=== PATIENT | female | born 1965 | race African-American/Black ===

== ENCOUNTER 2017-07-26 09:10 | Emergency (ER) | payer SELFPAY ==
[~2017-07-26] VITALS: Ht 165.1 cm; Wt 65.0 kg
[~2017-07-26 09:10] MED LIST: CARD120T4 PO; HYDR-3534 PO; HYDR12.57 PO
[2017-07-26 09:18] VITALS: BP 130/65; PULSE 78; RESP 16; TEMP 98; O2SAT 98
[2017-07-26 10:07] LABS: BLOOD, URINE SMALL (NEG); GLUCOSE,URINE NEG (NEG); KETONE, URINE NEG (NEG); NITRITE,URINE POS (NEG)
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
[2017-07-26 10:16] LABS: METHOD OF COLLECTION CLEAN CATCH; RBC, URINE 0-3 /hpf (0-3); URINE COLOR STRAW (YELLW/STRAW)
[2017-07-26 10:17] LABS: BACTERIA, URINE MANY /hpf
[2017-07-26] MEDS ORDERED: BACT800T5 PO (10:35)
[2017-07-26] MEDS ORDERED: ROBA500T PO (10:35)
[2017-07-26] MEDS ORDERED: KETOROLAC TROMETHAMINE 60 MG/2 ML (IM) VIAL IM ONE (10:45)
[2017-07-26] MEDS ORDERED: MACR100C2 PO (11:05)
--- NOTE | 2017-07-26 11:05 | PD ---
Data Data Last Documented VS Vital Signs Date Time Temp Pulse Resp B/P (MAP) Pulse Ox O2 Delivery O2 Flow Rate FiO2 07/26/17 09:18 98.0 78 16 130/65 (86) 98 Orders Orders Ua Includes Microscopic (07/26/17 09:56) Ed Discharge Order (07/26/17 10:36) Ketorolac Inj (Toradol Inj) (07/26/17 10:45) Labs Laboratory Tests Test 07/26/17 09:50 Urine Collection Type CLEAN CATCH Urine Color STRAW Urine Turbidity SLIGHTY CLOUDY Urine pH 6.0 Urine Specific [place] 1.012 Urine Protein NEG mg/dL Urine Glucose (UA) NEG mg/dL Urine Ketones NEG mg/dL Urine Occult Blood SMALL Urine Nitrite POS Urine Bilirubin NEG Urine Leukocyte Esterase LARGE Urine RBC 0-3 /hpf Urine WBC 25-49 /hpf Urine Bacteria MANY /hpf MDM Supervised Visit with RENU: Yes Diagnosis Primary Impression: UTI (urinary tract infection) Qualified Codes: N30.01 - Acute cystitis with hematuria Additional Impression: Back pain Qualified Codes: M54.40 - Lumbago with sciatica, unspecified side; G89.29 - Other chronic pain Referrals: Primary Care Physician Patient Instructions: General Instructions, Urinary Tract Infection in Women ( ED), Back Pain (ED) Departure Forms: Tests/Procedures Additional Instruction: Take medications as prescribed. Take [id number] Motrin 600 800 mg every 6-8 hours as needed for pain. Rest and stay well hydrated. Follow-up with her primary doctor. Return to emergency department if he developed new or worsening symptoms. Scripts Nitrofurantoin Monohydrate Macrocrystals (Macrobid) 100 Mg Cap 100 MG PO BID for Infection for 7 Days, #14 CAP 0 Refills Prov: Massiel Ramirez 07/26/17 Methocarbamol (Robaxin) 500 Mg Tab 500 MG PO TID for Muscle Spasm, #15 TAB 0 Refills Prov: Massiel Ramirez 07/26/17 Disposition: 01 DISCHARGE HOME Condition: Stable Massiel Ramirez Jul 26, 2017 11:05
== END 2017-07-26 11:12 | disposition home or self-care (01) ==
LOC: PHEFT 09:10
DX: N30.01 Acute cystitis with hematuria (principal); M54.40 Lumbago with sciatica, unspecified side; G89.29 Other chronic pain; V89.2XXS Person injured in unspecified motor-vehicle accident, traffic, sequela
CPT/HCPCS: 81001; 96372; 99284; J1885

== ENCOUNTER 2017-10-03 16:42 | Emergency (ER) | payer BC ==
[~2017-10-03] VITALS: Ht 165.1 cm; Wt 69.5 kg
[~2017-10-03 16:42] MED LIST changes: -HYDR-3534 PO; +MACR100C2 PO; +ROBA500T PO
[2017-10-03 16:46] VITALS: BP 140/74; PULSE 81; RESP 16; TEMP 98.2; O2SAT 99
[2017-10-03 17:02] LABS: BILIRUBIN, URINE NEG (NEG); BLOOD, URINE NEG (NEG); GLUCOSE,URINE NEG (NEG); KETONE, URINE NEG (NEG); NITRITE,URINE NEG (NEG); PH, URINE 6.5 (5.0-8.5); URINE LEUKOCYTE ESTERASE NEG (NEG)
[2017-10-03 17:13] LABS: SQUAMOUS EPITHELIAL CELL URINE 0-5 /hpf (0-5); URINE COLOR YELLOW (YELLW/STRAW)
[2017-10-03] MEDS ORDERED: DILT120T PO (18:44)
[2017-10-03] MEDS ORDERED: ASPI81CH7 CHEW (18:44)
[2017-10-03] MEDS ORDERED: DEXAMETHASONE SOD PHOS 20 MG/5 ML VIAL IM ONE (19:15)
--- NOTE | 2017-10-03 19:16 | PD ---
HPI Chief Complaint: Musculoskeletal Complaint Time Seen by Provider: 19:08 Travel History International Travel<30 days: No Contact w/Intl Traveler<30days: No Traveled to known affect area: No History of Present Illness HPI Patient comes emergency department complaining of left hip pain as burning-like in nature radiating down the back of her leg ongoing since May. Patient denies any injury, fevers, loss change in bowel or bladder, numbness or tingling anywhere, or weakness. Pain is worse with certain movement. Patient reports she has been taking Aleve and Tylenol helps some. Patient reports when this initially happened she was evaluated and told it was secondary to UTI. PFSH Past Medical History Hx Anticoagulant Therapy: No Cardiovascular Problems: Yes (HTN) Diabetes: No Diminished Hearing: No Hypertension: Yes Psychiatric: No Tetanus Vaccination: Unknown ?: Not : 2 Para: 2 Miscarriage: 0 : 0 Past Surgical History Genitourinary Surgery: Yes (laproscopic uterine surgery) Gynecologic Surgery: Yes (PARTIAL CERVIX REMOVED IN OCTOBER 2006) Other Surgery: Yes Social History Alcohol Use: Yes (SOCIALLY) Tobacco Use: No Substance Use: No Allergies-Medications (Allergen,Severity, Reaction): Coded Allergies: metronidazole (Unverified Allergy, Severe, Nausea/Vomiting, 10/03/17) Reported Meds & Prescriptions Reported Meds & Active Scripts Active Medrol Dosepak (Methylprednisolone) 4 Mg Dspk 4 Mg PO DIRECTED Per Pharmacist direction Reported Aspirin Children's (Aspirin) 81 Mg Chew 81 Mg CHEW DAILY Diltiazem (Diltiazem HCl) 120 Mg Tab 120 Mg PO DAILY Hydrochlorothiazide 12.5 Mg Cap 12.5 Mg PO BID Review of Systems Except as stated in HPI: all other systems reviewed are Neg Physical Exam Narrative GENERAL: Well-developed, well nourished, in no acute distress, and non-ill appearing. SKIN: Focused skin assessment warm and dry. HEAD: Atraumatic. Normocephalic. EYES: Pupils equal and round. EOMI. No scleral icterus. No injection or drainage. ENT: No nasal bleeding or discharge. Mucous membranes pink and moist. NECK: Trachea midline. Supple. No nuclear rigidity. RESPIRATORY: No accessory muscle use. No respiratory distress. GASTROINTESTINAL: Abdomen soft, non-tender, nondistended, and no guarding. Hepatic and splenic margins not palpable. No pulsatile mass. MUSCULOSKELETAL: No obvious deformities. No clubbing. No cyanosis. No edema. Full range of motion. No tenderness or crepitus or midline lumbar spine. Pelvic stable. Hip: FROM and equal BL with passive flexion, extension, Abduction, Adduction, and internal/external rotation. Pulses equal BL distal to injury. Capillary refill less than 2 seconds distal to injury and equal BL. FROM distal to injury and equal BL. Strength distal to injury equal BL. NV intact distal to injury and equal BL. Plantar flexion and dorsal flexion equal BL. Dorsal pulses equal BL. Sensation equal BL 1st web space. Straight leg test negative bilaterally. NEUROLOGICAL: Awake and alert. No obvious cranial nerve deficits. Motor grossly within normal limits. Normal speech. PSYCHIATRIC: Appropriate mood and affect; insight and judgment normal. Data Data Last Documented VS Vital Signs Date Time Temp Pulse Resp B/P (MAP) Pulse Ox O2 Delivery O2 Flow Rate FiO2 10/03/17 16:46 98.2 81 16 140/74 (96) 99 Orders Orders Urinalysis - C+S If Indicated (10/03/17 16:49) Dexamethasone Inj (Decadron Inj) (10/03/17 19:15) Hip, Uni(Ap&Lat) W Ap Pelvis (10/03/17 ) Ed Discharge Order (10/03/17 20:36) Labs Laboratory Tests Test 10/03/17 16:50 Urine Collection Type CLEAN CATCH Urine Color YELLOW Urine Turbidity CLEAR Urine pH 6.5 Urine Specific [place] 1.015 Urine Protein NEG mg/dL Urine Glucose (UA) NEG mg/dL Urine Ketones NEG mg/dL Urine Occult Blood NEG Urine Nitrite NEG Urine Bilirubin NEG Urine Leukocyte Esterase NEG Urine Squamous Epithelial Cells 0-5 /hpf Microscopic Urinalysis Comment CULT NOT INDICATED MDM Medical Decision Making Medical Screen Exam Complete: Yes Emergency Medical Condition: Yes Interpretation(s) Last Impressions Hip and Pelvis X-Ray 10/03/17 0000 Signed Impressions: Service Date/Time: Tuesday, October 03, 2017 19:27 - CONCLUSION: Unremarkable exam for patient's age. Martin Zamora MD Differential Diagnosis UTI, sciatica, strain, fracture, avascular necrosis Narrative Course The patient presented complaining of hip pain with radiation down leg. There was no history of recent fall or trauma. There was no evidence to support genitourinary etiology. There is also no evidence to suggest vascular pathology such as AAA dissection. No fevers or other evidence to suspect infectious processes, abscess, osteomyelitis etc. The patients neurological exam is normal with normal motor and sensory. There is no saddle paresthesias reported and no bowel or bladder incontinence or retention. I suspect the pain is mechanical in nature with sciatica. Clinical suspicion, plan of care and management was discussed with the patient. The patient was instructed to follow up with their health care provider. The patient was also instructed to return if the pain worsened, changed, or developed weakness or bowel or bladder trouble. The patient agreed with plan. Patient in no obvious distress upon re-evaluation. All pertinent laboratory/ Radiology result(s) discussed with patient. Patient was asked if they wanted to speak to my attending, which the patient did not wish to do at this time. Any questions/concerns in reference to patient diagnosis/condition discussed and clarified prior to patient's discharge. Reinforced sheer importance of close follow up with patient's primary physician or primary care clinic and orthopedic. Instructed patient to return to ED immediately, if symptoms return/ worsen. Patient showed understanding of above instructions. Further instructions and recommendations were detailed in discharge paperwork. Patient ambulated without difficulty out of ED at discharge. Diagnosis Primary Impression: Sciatica of left side Referrals: Deandre Toledo MD [facility] Patient Instructions: General Instructions, Sciatica (ED) Additional Instructions: Follow-up with your primary care physician and orthopedic in 3-5 days for reevaluation. Take all medication as prescribed. Do not take Aleve or ibuprofen while taking medication prescribed today. Return to the emergency department if symptoms get worse. Med/Other Pt SpecificInfo: Prescription(s) given Scripts Methylprednisolone Dosepak (Medrol Dosepak) 4 Mg Dspk 4 MG PO DIRECTED, #1 DSPK 0 Refills Per Pharmacist direction Prov: Abelino Ledesma MD 10/03/17 Disposition: 01 DISCHARGE HOME Condition: Stable Soy Garcia Oct 03, 2017 19:16
--- NOTE | 2017-10-03 19:44 | RADRPT ---
EXAM DATE/TIME: 10/03/2017 19:27 [place] COMPARISON: No previous studies available for comparison. INDICATIONS : Left hip pain for 3 months with no known injury MEDICAL HISTORY : None. SURGICAL HISTORY : None. ENCOUNTER: Initial ACUITY: 3 months PAIN SCORE: 10/10 LOCATION: Left entire hip FINDINGS: Examination of the left hip was performed with AP Pelvis. The primary and secondary trabecular patte rn of the femoral neck is intact. The hip joint is of normal width without significant sclerosis or bony hypertrophy. The acetabulum is grossly intact. CONCLUSION: Unremarkable exam for patient's age. Martin Zamora MD on October 03, 2017 at 19:41 Board Certified Radiologist. This report was verified electronically.
[2017-10-03] MEDS ORDERED: MEDR4PAK PO (20:34)
== END 2017-10-03 20:50 | disposition home or self-care (01) ==
LOC: PHED 16:42 → PHEFT 20:50
DX: M54.32 Sciatica, left side (principal); I10 Essential (primary) hypertension; Z88.8 Allergy status to other drugs, medicaments and biological substances; Z79.82 Long term (current) use of aspirin; Z79.899 Other long term (current) drug therapy
CPT/HCPCS: 73502; 81001; 96372; 99284; J1100

== ENCOUNTER 2017-11-20 16:30 | Emergency (ER) | payer BC ==
[~2017-11-20] VITALS: Ht 165.1 cm; Wt 69.9 kg
[~2017-11-20 16:30] MED LIST changes: +ASPI81CH7 CHEW; -CARD120T4 PO; +DILT120T PO; -MACR100C2 PO; +MEDR4PAK PO; -ROBA500T PO
[2017-11-20 16:58] VITALS: BP 130/67; PULSE 79; RESP 16; TEMP 98.5; O2SAT 100
[2017-11-20 17:05] LABS: BILIRUBIN, URINE NEG (NEG); BLOOD, URINE NEG (NEG); GLUCOSE,URINE NEG (NEG); KETONE, URINE NEG (NEG); NITRITE,URINE NEG (NEG); PH, URINE 5.5 (5.0-8.5); URINE COLOR YELLOW (YELLW/STRAW); URINE LEUKOCYTE ESTERASE NEG (NEG)
--- NOTE | 2017-11-20 17:40 | PD ---
HPI Chief Complaint: Complaint Time Seen by Provider: 17:09 Travel History International Travel<30 days: No Contact w/Intl Traveler<30days: No Traveled to known affect area: No History of Present Illness HPI 52-year-old female that presents to the ED for evaluation of possible UTI. Per patient she's had this for 2 days. Per patient she's had urgency and sensation is something down there. Pressure. Back pain on the left side. Per patient history of sciatica and had shots for her sciatica improvement of symptoms but she wasn't sure of this is related to that or UTI. She denies any fevers chills or sweats. No vaginal discharge or bleeding. Has not seen anybody for this. No cough or runny nose. No injuries or falls. Allergies to Bactrim and metronidazole. PFSH Past Medical History Hx Anticoagulant Therapy: No Cardiovascular Problems: Yes (HTN) Diabetes: No Diminished Hearing: No Hypertension: Yes Psychiatric: No Tetanus Vaccination: > 5 Years Influenza Vaccination: Yes ?: Not LMP: menapause Menopausal: Yes : 2 Para: 2 Miscarriage: 0 : 0 Past Surgical History Genitourinary Surgery: Yes (Laproscopic uterine surgery) Gynecologic Surgery: Yes (Partial cervix removal ) Other Surgery: Yes Social History Alcohol Use: Yes (Occ./social) Tobacco Use: No Substance Use: No Allergies-Medications (Allergen,Severity, Reaction): Coded Allergies: metronidazole (Unverified Allergy, Severe, Nausea/Vomiting, 11/20/17) sulfamethoxazole (Verified Allergy, Intermediate, nausea, 11/20/17) trimethoprim (Verified Allergy, Intermediate, nausea, 11/20/17) Reported Meds & Prescriptions Reported Meds & Active Scripts Active Keflex (Cephalexin) 500 Mg Cap 500 Mg PO Q12H [address] (Diclofenac Sodium) 75 Mg Tabdr 75 Mg PO BID PRN Reported Diltiazem (Diltiazem HCl) 120 Mg Tab 120 Mg PO DAILY Hydrochlorothiazide 12.5 Mg Cap 25 Mg PO DAILY Review of Systems Except as stated in HPI: all other systems reviewed are Neg Physical Exam Narrative GENERAL: SKIN: Warm and dry. HEAD: Atraumatic. Normocephalic. EYES: Pupils equal and round. No scleral icterus. No injection or drainage. ENT: No nasal bleeding or discharge. Mucous membranes pink and moist. Tongue is midline. No uvula deviation. NECK: Trachea midline. No JVD. CARDIOVASCULAR: Regular rate and rhythm. RESPIRATORY: No accessory muscle use. Clear to auscultation. Breath sounds equal bilaterally. GASTROINTESTINAL: Abdomen soft, non-tender, nondistended. Hepatic and splenic margins not palpable. MUSCULOSKELETAL: Extremities without clubbing, cyanosis, or edema. No obvious deformities. Full range of motion of the upper and lower extremities bilaterally. 2+ pulses bilaterally. She does have reproducible pain in the musculature of the right upper back and the left lower back. The lumbar, thoracic, cervical spine tenderness to palpation. NEUROLOGICAL: Awake and alert. No obvious cranial nerve deficits. Motor grossly within normal limits. Five out of 5 muscle strength in the arms and legs. Normal speech. PSYCHIATRIC: Appropriate mood and affect; insight and judgment normal. Data Data Last Documented VS Vital Signs Date Time Temp Pulse Resp B/P (MAP) Pulse Ox O2 Delivery O2 Flow Rate FiO2 11/20/17 16:58 98.5 79 16 130/67 (88) 100 Orders Orders Urinalysis - C+S If Indicated (11/20/17 16:46) Labs Laboratory Tests Test 11/20/17 17:00 Urine Color YELLOW Urine Turbidity CLEAR Urine pH 5.5 Urine Specific [place] 1.010 Urine Protein NEG mg/dL Urine Glucose (UA) NEG mg/dL Urine Ketones NEG mg/dL Urine Occult Blood NEG Urine Nitrite NEG Urine Bilirubin NEG Urine Urobilinogen 1.0 MG/DL Urine Leukocyte Esterase NEG MDM Medical Decision Making Medical Screen Exam Complete: Yes Emergency Medical Condition: Yes Medical Record Reviewed: Yes Interpretation(s) UA negative Differential Diagnosis UTI versus cystitis versus pyelonephritis versus muscle strain versus muscle spasm Narrative Course 52-year-old female that presents to the ED for evaluation of possible UTI. Patient was properly examined and was found to have signs and symptoms which appear to be more consistent with UTI muscle strain. She has a history of this in the past was here very with similar. Urine was ordered. It was negative for acute disease. Unclear etiology of the patient's symptoms. Appears to be more muscle related possibly. She denies any vaginal issues. She still very concerning for UTI she states that she's had symptoms like this before feels very similar to her previous UTIs. Patient will be treated for this with diclofenac sodium. Give her a short prescription for Keflex to cover for bacterial infection that might have been missed in the urine sample at that this appears to be less likely. She was told follow closely with her PCP. See ED worsening symptoms. Diagnosis Primary Impression: Dysuria Additional Impression: Back pain Qualified Codes: M54.42 - Lumbago with sciatica, left side Patient Instructions: General Instructions Additional Instructions: Take medications as prescribed. F/u with PCP. Drink plenty of fluids. See ED if worsening symptoms. Med/Other Pt SpecificInfo: Prescription(s) given Scripts Cephalexin (Keflex) 500 Mg Cap 500 MG PO Q12H for Infection for 7 Days, #14 CAP 0 Refills Prov: Ani Aguilar MD 11/20/17 Diclofenac Sodium (Diclofenac Sodium DR) 75 Mg Tabdr 75 MG PO BID Y for PAIN SCALE 1 TO 10, #20 TAB 0 Refills Prov: Ani Aguilar MD 11/20/17 Disposition: 01 DISCHARGE HOME Jerod Montes Nov 20, 2017 17:40
[2017-11-20] MEDS ORDERED: DICL75TA PO (17:42)
[2017-11-20] MEDS ORDERED: PHEN0.4T PO (17:42)
[2017-11-20] MEDS ORDERED: CEPH-460 PO (17:42)
[2017-11-20 18:06] LABS: RBC, URINE 0-3 /hpf (0-3); SQUAMOUS EPITHELIAL CELL URINE 0-5 /hpf (0-5)
== END 2017-11-20 18:01 | disposition home or self-care (01) ==
LOC: PHEFT 16:30
DX: R30.0 Dysuria (principal); M54.42 Lumbago with sciatica, left side; I10 Essential (primary) hypertension; Z88.2 Allergy status to sulfonamides
CPT/HCPCS: 81001; 99283

== ENCOUNTER 2018-04-30 06:28 | Observation (INO) ==
[2018-04-30] MEDS ORDERED: Chlorhexidine Gluconate 2% 1 Pack (2 Cloths) TOPICAL ONE (06:56)
[2018-04-30] MEDS ORDERED: Metoprolol Tartrate 25 MG Tablet PO ONE (06:56)
[2018-04-30] MEDS ORDERED: Sodium Chlor 0.9% Inj 500 ML IV.SIG SCH (07:00)
[2018-04-30] MEDS ORDERED: ceFAZolin 2 GM IV; once IV.SIG ONE (07:00)
[2018-04-30 07:47] LABS: Baso % (Auto) 0.4 % (0.0-2.0); Eos # (Auto) 0.1 th/mm3 (0.0-0.4); Eos % (Auto) 0.9 % (0.0-4.0); Hematocrit 40.3 % (35.0-46.0); Lymph # (Auto) 2.2 th/mm3 (1.0-4.8); Lymph % (Auto) 39.3 % (9.0-44.0); Mean Corpuscular HGB Conc 34.8 % (32.0-36.0); Mean Corpuscular Hemoglobin 31.8 pg (27.0-34.0); Mean Corpuscular Volume 91.4 fL (80.0-100.0); Mean Platelet Volume 10.5 fL (7.0-11.0); Mono # (Auto) 0.3 th/mm3 (0.0-0.9); Mono % (Auto) 6.3 % (0.0-8.0); Neut # (Auto) 2.9 th/mm3 (1.8-7.7); Neut % (Auto) 53.1 % (16.0-70.0); Platelet Count 162 th/mm3 (150-450); Red Blood Count 4.41 mil/mm3 (4.00-5.30); Red Cell Distribution Width 12.8 % (11.6-17.2); White Blood Count 5.5 th/mm3 (4.0-11.0)
--- NOTE | 2018-04-30 07:51 | ECG ---
Date Performed: 04/30/2018 Time Performed: 07:25:17 PTAGE: 52 years EKG: Sinus rhythm NORMAL ECG PREVIOUS TRACING : 12/02/2013 22.01 No significant change from previous tracing noted. DOCTOR: Ryan Griggs Interpretating Date/Time 04/30/2018 07:51:12
[2018-04-30] MEDS ORDERED: Bupivacaine/Epinephrine 0.5% Inj 50 ML Vial ONE (07:57)
[2018-04-30] MEDS ORDERED: Thrombin Topical Soln 5,000 UNIT Vial TOPICAL ONE (07:57)
[2018-04-30] MEDS ORDERED: methylPREDNISolone acetate 40 MG/ML VIAL ONE (07:57)
[2018-04-30] MEDS ORDERED: Gelatin 12 MM/7 MM Topical Foam ONE (07:58)
[2018-04-30] MEDS ORDERED: fentaNYL Citrate Inj 100 MCG/2 ML Ampul ONE (08:17)
[2018-04-30 08:21] LABS: Bilirubin,Urine Negative (Negative); Color,Urine Yellow (Yellw/Straw); Glucose,Urine (UA) Negative (Negative); Leukocyte Esterase,Urine Negative (Negative); Nitrite,Urine Negative (Negative); Specific Gravity,Urine 1.014 (1.002-1.035)
[2018-04-30 08:23] LABS: Clarity,Urine Clear (Clear)
[2018-04-30] MEDS ORDERED: Succinylcholine Inj 100 MG/5 ML Syringe IV.PUSH ONE (09:31)
[2018-04-30] MEDS ORDERED: Neostigmine Inj 5 MG/5 ML Syringe IV.PUSH ONE (09:31)
[2018-04-30] MEDS ORDERED: Glycopyrrolate Inj 1 MG/5 ML Syringe IV.PUSH ONE (09:31)
[2018-04-30] MEDS ORDERED: Lidocaine PF 1% Inj 5 ML Syringe INFILTRATN ONE (09:31)
[2018-04-30] MEDS ORDERED: Bisacodyl 10 MG Supp RECTAL PRN (10:26)
--- NOTE | 2018-04-30 10:37 | P.OP ---
Preoperative Diagnosis: L5-S1 disk herniation Postoperative Diagnosis: L5-S1 disk herniation Date of procedure: 04/30/18 Procedure: L5-S1 left hemilaminectomy and microdiscectomy Anesthesia: JOJOA Surgeon: Victor Manuel Soliman MD Pathology: none sent Operation and Findings: INDICATIONS FOR THE SURGICAL PROCEDURE ms Mars is a 52 year-old female who presented with intractable mechanical back pain and clinical evidence of left S1 lower extremity radiculopathy. She was found to have a disk herniation and extrusion, causing significant stenosis with significant mass effect on the neural structures which correlated with the clinical symptoms. The patient has failed maximum nonsurgical management including multiple modalities of conservative treatment as well as pain management interventions by an interventional pain specialist. A surgical decompression were indicated as a last resort. The [id number] details of the procedure, indications, alternatives, risks and potential complications were fully discussed with the patient. The patient fully understood. All the questions were answered. No guarantees were given. The patient voiced requesting the procedure and signed informed consents. He was offered the alternative of delaying the procedure and continuing with nonsurgical management. DETAILS OF THE SURGICAL PROCEDURE After the induction of general anesthesia, endotracheal intubation was performed. A Lopez catheter, bilateral DUSTY hose and sequential compression devices were placed and kept throughout the procedure. The patient was positioned prone on a Torrey table over a Alonso frame. All pressure points were carefully padded with eggcrate mattress. The eyes were tapped shut after ointment was applied by the anesthesiologist to prevent corneal abrasion. A Briana hugger was placed over the exposed lower body to maintain control of the core body temperature. The lower lumbar region was prepped and draped in the usual sterile fashion. A spinal needle was placed for localization and an x- ray performed with a C-arm. A skin incision was made in the midline over the spinous processes L5-S1 with a #10 blade. Small subcutaneous bleeders were controlled with a bipolar and the dissection was carried out through the lumbar fascia exposing the spinous processes. A subperiosteal dissection was performed with a Ramos elevator and a Bovie over the L5-S1 spinous process lamina and facets. A microdiscectomy self- retaining retractor was placed on the incision and an x-ray was obtained with an instrument placed underneath the lamina. At this point in the procedure the operating microscope was draped in the usual sterile fashion and brought to the field. The rest of the surgical procedure was performed using microsurgical dissection technique with exception of the closure. Once the level was confirmed, a decompressive laminectomy was performed at L5- S1 on the left side, using the TPS drill with an AM-8 drill bit. A medial facetectomy was performed and the superior free border of the ligamentum flavum was dissected with a ligament dissector and removed with a thin footplate 2 mm Kerrison The medial facetectomy allowed me to expose the left S1 nerve root, which was identified and followed towards its exit in the foramen. Epidural veins located laterally to the dural sac were coagulated with a bipolar and incised with microscissors. Gentle medial retraction of the dural sac allowed inspection of the disc space. The patient had a disc herniation, causing mass effect over the exiting nerve root. The annulus fibrosus of the disc was coagulated with the bipolar and incised with an 11 blade. The extruded disc was very scar dows to the exiting S1 nerve root, and carefully dissected from the the nerve and surrounding tissue with extreme care. The microdiscectomy was carried out in the standard fashion using straight and up-biting pituitary forceps. A good decompression of the dural sac and nerve root was achieved. The exit of the nerve root was inspected for residual disc fragments and hemostasis was secured with the bipolar. The incision was irrigated with a large amount of saline solution. A Valsalva maneuver failed to show any cerebrospinal fluid leak or bleeding. The decompression was assessed again and found to be satisfactory. 4m of Depomedrol was left over the epidural space. The incision was then closed in layers. The fascia was closed with 0 Vicryl sutures in an interrupted fashion. The superficial fascia was closed with 0 Vicryl sutures. The fascia was infiltrated with 0.5% Marcaine with epinephrine 1:100,000 dilution. The subcutaneous tissue was irrigated then closed with 0 Vicryl and 3-0 Vicryl. The skin was closed with 4-0 running subcuticular Vicryl. Dermabond was applied to the skin. A sterile dressing was applied. At the end of the procedure, the sponge, needle and instrument counts were all correct. Estimated blood loss was less than 50 cc. No blood transfusion was given. No intraoperative complications occurred. The patient received prophylactic antibiotics. The patient was then extubated and transferred to the recovery room in stable condition.
--- NOTE | 2018-04-30 10:38 | XR ---
EXAM DATE: 04/30/2018 10:32 AM EDT AGE/SEX: 52 years / Female INDICATIONS: L5-S1 hemilaminectomy. Level localization. CLINICAL DATA: This is the patient's initial encounter. Patient reports that signs and symptoms have been present for 1 day and indicates a pain score of Nonresponsive. MEDICAL/SURGICAL HISTORY: Non-responsive. Non-responsive. COMPARISON: No prior exams available for comparison. FINDINGS: A single lateral view of the lower lumbar spine was performed. There is a localization device posteri will at the last disc space level which appears to be L5-S1. CONCLUSION: Level localization L5-S1. Electronically signed by: Martin Zamora MD 04/30/2018 10:37 AM EDT
[2018-04-30] MEDS ORDERED: *morphine SULFATE 4 MG/ML PERIprocedure ONLY ONE ×2 (10:46→11:33)
[2018-04-30] MEDS ORDERED: Morphine Inj 4 MG/ML Vial ONE ×2 (10:46→19:15)
[2018-04-30] MEDS ORDERED: *Meperidine Inj 25 MG/ML Vial PERIprocedural Use ONLY ONE (10:57)
[2018-04-30] MEDS: Sod Chloride 0.9% Inj 1,000 ML IV.CONT SCH ×2 (11:00→21:41)
[2018-04-30] MEDS: Gabapentin 300 MG Capsule PO SCH ×2 (13:36→21:46)
[2018-04-30] MEDS: ceFAZolin Inj 2,000 MG in Sodium Chlor 0.9% Inj 100 ML IV.SIG SCH (17:29)
[2018-04-30] MEDS: Nitrofurantoin Monohydrate-Macrocrystal 100 MG Capsule PO SCH (21:45)
[2018-04-30] MEDS: Senna/Docusate Sodium 8.6/50 MG Tablet PO SCH (21:45)
[2018-05-01] MEDS: ceFAZolin Inj 2,000 MG in Sodium Chlor 0.9% Inj 100 ML IV.SIG SCH ×2 (00:26→08:26)
[2018-05-01] MEDS: Gabapentin 300 MG Capsule PO SCH (08:28)
[2018-05-01] MEDS: Nitrofurantoin Monohydrate-Macrocrystal 100 MG Capsule PO SCH (08:28)
[2018-05-01] MEDS: Senna/Docusate Sodium 8.6/50 MG Tablet PO SCH (08:28)
[2018-05-01] MEDS ORDERED: dilTIAZem CD 120 MG Capsule PO SCH (09:00)
[2018-05-01] MEDS: Sod Chloride 0.9% Inj 1,000 ML IV.CONT SCH (10:07)
--- NOTE | 2018-05-01 12:04 | P.DS ---
Date of admission: 04/30/18 10:26 Primary care physician: Shyla Hou Brief History from admission: ms Mars is a 52 year-old female who presented with intractable mechanical back pain and clinical evidence of left S1 lower extremity radiculopathy. She was found to have a disk herniation and extrusion, causing significant stenosis with significant mass effect on the neural structures which correlated with the clinical symptoms. The patient has failed maximum nonsurgical management including multiple modalities of conservative treatment as well as pain management interventions by an interventional pain specialist. A surgical decompression were indicated as a last resort. DS: Medications - Discharge Medications Prescriptions: cyclobenzaprine 5 mg PO TID PRN #90 tab PRN Reason: Spasms hydrocodone-acetaminophen 1 tab PO Q4-6H PRN 5 Days #36 tab PRN Reason: Pain Scale 6 To 10 DS: Summary Hospital Course: Ms. Mars underwent a L5-S1 left hemilaminectomy and microdiscectomy for L5- S1 disk herniation on 04/30/18. Her surgery went well without complications, she was discharged the following morning in stable conditions. - Time Spent with Patient Total time spent providing and/or coordinating discharge services: Less than 30 minutes - Quality: VTE Deep Vein Thrombosis/Pulmonary Embolism Present on Admission: No Exam Vital signs: Vital Signs 04/30/18 12:30 04/30/18 16:00 04/30/18 20:00 Temperature 97.3 F L 97.5 F L 98.0 F Pulse Rate 73 87 72 Respiratory Rate 16 16 17 Blood Pressure 155/75 H 128/86 145/67 H Pulse Oximetry 97 97 97 04/30/18 22:15 05/01/18 00:00 05/01/18 01:28 Temperature 98.2 F Pulse Rate 68 Respiratory Rate 18 16 16 Blood Pressure 138/64 Pulse Oximetry 96 05/01/18 04:00 05/01/18 08:00 Temperature 97.7 F 97.1 F L Pulse Rate 75 78 Respiratory Rate 17 18 Blood Pressure 121/59 L 139/72 Pulse Oximetry 98 100 Intake & Output 04/30/18 05/01/18 05/01/18 18:59 06:59 18:59 Intake Total 1220 / 1220 1120 / 1120 120 / 120 Balance 1220 / 1220 1120 / 1120 120 / 120 Weight 68.1 kg Intake: IV 120 / 120 1120 / 1120 120 / 120 NS Inj 1,000 ML @ 100 mls/hr IV 1000 / 1000 .CONT .Q10H NICOLA Rx#:[id number] Ancef Inj 2,000 MG In NS Inj 120 / 120 120 / 120 120 / 120 100 ML @ 240 mls/hr IV.SIG Q8H NICOLA Rx#:[id number] Oral 100 / 100 Anesthesia Amount 1000 / 1000 Other: Date of Last Bowel Movement 04/30/18 04/30/18 04/30/18 Weight On Admission 68.1 kg Results Procedures completed during hospitalization: L5-S1 left hemilaminectomy and microdiscectomy - Impressions ITS Impressions Lumbar Spine X-Ray 04/30/18 00:00 CONCLUSION: Level localization L5-S1. Discharge Plan - Discharge Disposition Patient Disposition: Discharge Home - Discharge Order Discharge Orders: Discharge Order (Routine); Ordered 05/01/18 Ordered By: Maria E Stratton - Physicians Team Primary Care Provider: Shyla Hou Attending Provider: Vcitor Manuel Soliman - Rxs /Orders / Referrals /Forms Prescriptions: New cyclobenzaprine 5 mg Tablet 5 mg PO TID PRN (Reason: Spasms) Qty: 90 RF: 0 gabapentin [Neurontin] 300 mg Capsule 300 mg PO BID Qty: 60 RF: 1 hydrocodone-acetaminophen 10-325 mg Tablet 1 tab PO Q4-6H PRN (Reason: Pain Scale 6 To 10) 5 Days Qty: 36 RF: 0 nitrofurantoin monohyd/m-cryst 100 mg Capsule 100 mg PO BID RF: 0 Continue diltiazem HCl 120 mg Capsule,Extended Release 24 Hr 120 mg PO DAILY hydrochlorothiazide 12.5 mg Capsule 12.5 mg PO DAILY nitrofurantoin monohyd/m-cryst 100 mg Capsule 100 mg PO BID Ambulatory Orders / Order Sets / DME: Adjustable Commode 3-in-1 (1 each) (Routine) Location: Determined by Patient Ordered By: Maria E Stratton Referrals: Shyla Hou MD [Primary Care Provider] - See Instructions - Discharge Instructions Patient Printed Instructions: Laminectomy (DC), How to Choose and Use a Walker (GEN), Fall Prevention (DC), Lumbar Corset (DC) Additional Instructions: IT HAS BEEN OUR PLEASURE TAKING CARE OF YOU! GOOD LUCK WITH YOUR RECOVERY! WE HOPE THAT YOU HAVE HAD AN EXCEPTIONAL STAY HERE AT [facility]! FOLLOW UP WITH DR SOLIMAN IN 5-7 DAYS FOR WOUND CHECK. - Post Discharge Care Plan Care Plan Goals: Your Health Problems: Goals to Promote Your Health: * To prevent worsening of your condition * To maintain your health at the optimal level Directions to Meet Your Goals: * Take your medications as prescribed * Follow your dietary instruction * Follow activity as directed * Keep your appointments as scheduled * Take your immunizations and boosters as scheduled * If your symptoms worsen call your PCP * If no PCP go to Urgent Care or Emergency Room Smoking is dangerous to your health. Avoid second hand smoke. You may reach the 24-hour crisis hotline for domestic abuse at .
== END 2018-05-01 10:17 | disposition home or self-care (01) ==
LOC: HSDI 06:28 → HSDC 06:28 → N06 12:26
PROVIDERS: ADMIT Neurological Surgery; ATTEND Neurological Surgery